=== PATIENT | male | born 1970 | race African-American/Black ===

== ENCOUNTER 2016-05-26 10:58 | Inpatient (IN) | payer OTHER ==
[2016-05-26 11:18] VITALS: BMI 24.1
--- NOTE | 2016-05-26 11:42 | HP ---
COWS - Scale Resting Pulse: 0= [place] 80 or Below Sweatin= Chills/Flushing Restless Observation: 1= Difficult to Sit Still Pupil Size: 0= Normal to Room Light Bone or Joint Aches: 2= Severe Diffuse Aches Runny Nose/ Eye Tearin= Runny Nose/Eyes GI Upset > 30mins: 3= Vomiting/Diarrhea Tremor Observation: 0= None Yawning Observation: 1= 1-2x During Session Anxiety or Irritability: 1=Feels Anxious/Irritable Goose Flesh Skin: 3=Piloerection COWS Score: 14 Admission ROS S - HPI Chief Complaint: "I need to detox from Heroin." Allergies/Adverse Reactions: Allergies Allergy/AdvReac Type Severity Reaction Status Date / Time Fish Containing Products Allergy Swelling Verified 05/26/16 11:10 No Known Drug Allergies Allergy Verified 05/26/16 11:10 History of Present Illness: Pt. is a 45 YO male here to detox from Heroin. Pt. has been here at [facility] for Detox before. Pt. also reports using Cocaine on a daily basis. Exam Limitations: No Limitations - Ebola screening Have you traveled outside of the country in the last 21 days: No (N) Have you had contact with anyone from an Ebola affected area: No Have you been sick,other than usual withdrawal symptoms: No Do you have a fever: No - Review of Systems Constitutional: Diaphoresis, Loss of Appetite, Malaise, Night Sweats, Changes in sleep, Unintentional Wgt. Loss (Lost approx. 25 lbs. over the last year.) EENT: reports: Blurred Vision, Recent change in vision (Increasing difficulty seeing things that are up close.), Nose Congestion, Other (Dentures - upper.) Respiratory: reports: No Symptoms reported Cardiac: reports: No Symptoms Reported GI: reports: Diarrhea, Nausea, Vomiting : reports: Other (Pt. has Sickle Cell Disease. Occasionally suffers from Priapsm (involuntary erection). NOT CURRENT.) Musculoskeletal: reports: Back Pain, Joint Pain, Muscle Pain, Joint Stiffness Integumentary: reports: Sweating Neuro: reports: No Symptoms reported Endocrine: reports: No Symptoms Reported Hematology: reports: Anemia, Other (Sickle Cell Disease.) Psychiatric: reports: Judgement Intact, Mood/Affect Appropiate, Orientated x3, Anxious, Depressed Other Systems: Reviewed and Negative Patient History - Patient Medical History Hx Anemia: Yes (History of Sickle Cell Disease.) Hx Asthma: No Hx Chronic Obstructive Pulmonary Disease (COPD): No Hx Cancer: No Hx Cardiac Disorders: No Hx Congestive Heart Failure: No Hx Hypertension: No Hx Hypercholesterolemia: No Hx Pacemaker: No HX Cerebrovascular Accident: No Hx Seizures: No Hx Dementia: No Hx Diabetes: No Hx Gastrointestinal Disorders: No Hx Liver Disease: No Hx Genitourinary Disorders: Yes (Occasional involuntary spontaneous erection. NOT CURRENTLY.) Hx Sexually Transmitted Disorders: No Hx Renal Disease (ESRD): No Hx Thyroid Disease: No Hx Human Immunodeficiency Virus (HIV): No (Last Tested: 12/2015: NEGATIVE.) Hx Hepatitis C: No (Last Tested: 12/2015: NEGATIVE.) Hx Depression: Yes (No previous treatment.) Hx Suicide Attempt: No (PATIENT DENIES CURRENT SI / HI.) Hx Bipolar Disorder: No Hx Schizophrenia: No - Patient Surgical History Past Surgical History: Yes Hx Neurologic Surgery: No Hx Cataract Extraction: No Hx Cardiac Surgery: No Hx Lung Surgery: No Hx Breast Surgery: No Hx Breast Biopsy: No Hx Abdominal Surgery: No Hx Appendectomy: No Hx Cholecystectomy: No Hx Genitourinary Surgery: No Hx Section: No Hx Orthopedic Surgery: Yes (LEFT ELBOW FRACTURE-HAD SCREWS PLACED AT AGE 15) Anesthesia Reaction: No - PPD History Previous Implant?: Yes Documented Results: Negative w/o proof Implanted On Prior [facility] Admission?: Yes Date: 03/16/15 Results: 0 MM PPD to be Administered?: Yes - Reproductive History Patient is a Female of Child Bearing Age (11 -55 yrs old): No (PATIENT IS MALE.) - Smoking Cessation Smoking history: Current every day smoker Have you smoked in the past 12 months: Yes Aproximately how many cigarettes per day: 20 Cigars Per Day: 0 Hx Chewing Tobacco Use: No Initiated information on smoking cessation: Yes 'Breaking Loose' booklet given: 05/26/16 (GIVEN ON UNIT.) - Substance & Tx. History Hx Alcohol Use: No Hx Substance Use: Yes Substance Use Type: Cocaine, Heroin Hx Substance Use Treatment: Yes (Previous Detox admission.) - Substances Abused Heroin Route: Injection Frequency: Daily Amount used: 10 BAGS Age of first use: 20 Date of Last Use: 05/25/16 Crack Route: Smoking Frequency: Daily Amount used: $100 Age of first use: 15 Date of Last Use: 05/25/16 Family Disease History - Family Disease History Family Disease History: Diabetes: Grandparent, [place]: Mother (.), Other: Father (HEROIN,ALCOHOL), Daughter (Sickle Cell Disease.) Admission Physical Exam [facility] - Vital Signs Vital Signs: Vital Signs - 24 hr 05/26/16 11:16 Temperature 95.5 F L Pulse Rate 71 Respiratory 18 Rate Blood Pressure 130/77 - Physical General Appearance: Yes: No Apparent Distress, Nourished, Appropriately Dressed , Irritable, Anxious HEENTM: Yes: Hearing grossly Normal, Normocephalic, Normal Voice, MAGY, Pharynx Normal Respiratory: Yes: Chest Non-Tender, Lungs Clear, No Respiratory Distress Neck: Yes: No masses,lesions,Nodules, Supple, Trachea in good position Breast: Yes: Breast Exam Deferred Cardiology: Yes: Regular Rhythm, Regular Rate, S1, S2 Abdominal: Yes: Normal Bowel Sounds, Non Tender, Flat, Soft Genitourinary: Yes: Within Normal Limits Back: Yes: Normal Inspection Musculoskeletal: Yes: full range of Motion, Gait Steady Extremities: Yes: Normal Inspection, Normal Range of Motion, Non-Tender, Other ( Track gould noted on Left and Right Cubital creases. Area of swelling noted on Right forearm.) Neurological: Yes: Fully Oriented, Alert, Normal Mood/Affect, Normal Response Integumentary: Yes: Normal Color, Warm, Other (Track gould noted on Left and Right Cubital creases. Area of swelling noted on right forearm.) Lymphatic: Yes: Within Normal Limits - Addiitonal Findings: Pt. declines both Nicotine Patch and Nicotine Gum for admission when offered. - Diagnostic (1) Cocaine dependence, uncomplicated Current Visit: Yes Status: Acute (2) Nicotine dependence Current Visit: Yes Status: Chronic Qualifiers: Nicotine product type: cigarettes Substance use status: uncomplicated Qualified Code(s): F17.210 - Nicotine dependence, cigarettes, uncomplicated (3) Opioid dependence with withdrawal Current Visit: Yes Status: Acute (4) Sickle cell disease Current Visit: Yes Status: Chronic Qualifiers: Sickle-cell associated disorders: without crisis Qualified Code(s): D57.1 - Sickle-cell disease without crisis (5) Cellulitis of right arm Current Visit: Yes Status: Acute Cleared for Admission [facility] - Detox or Rehab [facility] Level of Care: Medically Managed Detox Regimen/Protocol: Methadone [facility] Breath Alcohol Content Breath Alcohol Content: 0 Urine Drug Screen - Results Drug Screen Negative: No Urine Drug Screen Results: THC-Marijuana, JUANIS-Cocaine, OPI-Opiates
[2016-05-26] MEDS ORDERED: METHADONE HCL 10 MG TABLET (FOR DETOX USE ONLY) PO ONE ×2 (12:23→23:00)
[2016-05-26] MEDS ORDERED: IBUPROFEN 400 MG TABLET (FP) PO PRN (12:23)
[2016-05-26] MEDS ORDERED: LOPERAMIDE HCL 2 MG CAPSULE PO PRN (12:23)
[2016-05-26] MEDS ORDERED: P-EPHED 60MG/TRIPROLIDI 2.5MG TABLET PO PRN (12:23)
[2016-05-26] MEDS ORDERED: MAGNESIUM HYDROX 2400MG/30ML ORAL SUSPENSION 30 ML CUP PO PRN (12:23)
[2016-05-26] MEDS ORDERED: guaiFENesin/D-METHORPHAN HB 10 ML UNIT-DOSE CUPS PO PRN (12:23)
[2016-05-26] MEDS ORDERED: MAGNESIUM CITRATE 300 ML BOTTLE PO PRN (12:23)
[2016-05-26] MEDS ORDERED: MAG HYDROX/AL HYDROX/SIMETH 30 ML UNIT-DOSE CUP PO PRN (12:23)
[2016-05-26] MEDS ORDERED: diphenhydrAMINE HCL 50 MG CAPSULE PO PRN (12:23)
[2016-05-26] MEDS ORDERED: ACETAMINOPHEN 325 MG TABLET (FP) PO PRN (12:23)
[2016-05-26] MEDS ORDERED: hydrOXYzine PAMOATE 50 MG CAPSULE (FP) PO PRN (12:23)
[2016-05-26] MEDS ORDERED: MENTHOL/PHENOL 1 EACH UD MM PRN (12:23)
[2016-05-26] MEDS: diazePAM 5 MG TABLET PO PRN (12:45)
[2016-05-26] MEDS: CEPHALEXIN MONOHYDRATE 500 MG CAPSULE (UD) PO SCH ×2 (17:44→23:33)
[2016-05-26 18:52] LABS: URINE APPEARANCE CLEAR; URINE BILIRUBIN NEGATIVE (NEGATIVE); URINE COLOR LTYELLOW; URINE GLUCOSE (UA) NEGATIVE (NEGATIVE); URINE KETONE NEGATIVE (NEGATIVE); URINE LEUK ESTERASE NEGATIVE (NEGATIVE); URINE NITRITE NEGATIVE (NEGATIVE); URINE PROTEIN NEGATIVE (NEGATIVE); URINE UROBILINOGEN NEGATIVE E.U./dl (0.2-1.0)
[2016-05-26 18:57] LABS: URINE BLOOD 1+ (NEGATIVE)
[2016-05-26 19:01] LABS: URINE RBC <1 /hpf (0-3)
[2016-05-26] MEDS: THIAMINE HCL 100 MG TABLET (FP) PO SCH (22:34)
[2016-05-26] MEDS: BACITRACIN 30 GM TUBE TOPICAL OINTMENT TP SCH (22:34)
[2016-05-27] MEDS: CEPHALEXIN MONOHYDRATE 500 MG CAPSULE (UD) PO SCH ×3 (06:01→17:05)
[2016-05-27] MEDS ORDERED: PRENATAL VITAMINS W/ FOLIC ACID TABLET (FP) PO SCH (10:00)
[2016-05-27] MEDS ORDERED: METHADONE HCL 10 MG TABLET (FOR DETOX USE ONLY) PO ONE (10:00)
[2016-05-27 10:06] LABS: MCHC 33.4 g/dl (32.0-35.9); MEAN CELL VOLUME 83.7 fl (80-96); MEAN PLT VOLUME 7.3 fl (7.5-11.1); PLATELET COUNT 288 K/MM3 (134-434); RDW 13.3 % (11.9-15.9); WHITE BLOOD COUNT 5.2 K/mm3 (4.0-10.0)
[2016-05-27] MEDS: BACITRACIN 30 GM TUBE TOPICAL OINTMENT TP SCH ×2 (10:26→23:14)
[2016-05-27 10:33] LABS: ALBUMIN 3.7 g/dl (3.4-5.0); ALK PHOS 79 U/L (45-117); ANION GAP 8 (8-16); BILIRUBIN,TOTAL 0.4 mg/dL (0.2-1.0); CALCIUM 9.6 mg/dL (8.5-10.1); CO2 26 mmol/L (21-32); CREATININE 1.1 mg/dL (0.7-1.3); GLUCOSE,RANDOM 89 mg/dL (74-106); SGOT/AST 13 U/L (15-37); SGPT/ALT 21 U/L (12-78); TOT PROT 6.7 g/dl (6.4-8.2)
[2016-05-27] MEDS ORDERED: CYCLOBENZAPRINE HCL 10 MG TABLET (FP) PO PRN (10:58)
--- NOTE | 2016-05-27 11:03 | PN ---
BHS COWS - Scale Resting Pulse: 0= [place] 80 or Below Sweatin=Flushed/Facial Moisture Restless Observation: 1= Difficult to Sit Still Pupil Size: 0= Normal to Room Light Bone or Joint Aches: 2= Severe Diffuse Aches Runny Nose/ Eye Tearin= Runny Nose/Eyes GI Upset > 30mins: 1= Stomach Cramp Tremor Observation of Outstretched Hands: 2= Slight Tremor Visible Yawning Observation: 1= 1-2x During Session Anxiety or Irritability: 2=Irritable/Anxious Goose Flesh Skin: 0=Smooth Skin COWS Score: 13 BHS Progress Note (SOAP) Subjective: ANXIETY,TREMORS,SWEATING,INTERRUPTED SLEEP,RESTLESS Objective: 05/27/16 11:02 Vital Signs - 8 hr 05/27/16 05/27/16 05/27/16 03:19 06:17 10:15 Temperature 97.8 F 99.0 F Pulse Rate 56 L 71 Respiratory 18 18 18 Rate Blood Pressure 135/88 141/73 Laboratory Tests 05/26/16 05/27/16 05/27/16 17:45 06:30 06:30 WBC 5.2 D RBC 4.75 Hgb 13.3 Hct 39.8 MCV 83.7 MCHC 33.4 RDW 13.3 Plt Count 288 MPV 7.3 L Sodium 141 Potassium 4.3 D Chloride 107 Carbon Dioxide 26 Anion Gap 8 BUN 13 D Creatinine 1.1 Creat Clearance w eGFR > 60 Random Glucose 89 D Calcium 9.6 Total Bilirubin 0.4 AST 13 L ALT 21 Alkaline Phosphatase 79 Total Protein 6.7 Albumin 3.7 Urine Color Ltyellow Urine Appearance Clear Urine pH 5.0 Ur Specific [place] 1.014 Urine Protein Negative Urine Glucose (UA) Negative Urine Ketones Negative Urine Blood 1+ H Urine Nitrite Negative Urine Bilirubin Negative Urine Urobilinogen Negative Ur Leukocyte Esterase Negative Urine RBC <1 Urine WBC None Ur Epithelial Cells Rare LABS NOTED Assessment: 05/27/16 11:03 WITHDRAWAL SX. Plan: CONTINUE DETOX
[2016-05-27] MEDS: cloNIDine HCL 0.1 MG TABLET PO SCH ×2 (11:08→22:04)
--- NOTE | 2016-05-27 15:42 | CONSULT ---
[facility] Psychiatric Consult - Data Date of interview: 05/27/16 Admission source: [facility] Identifying data: Readmission to [facility] for this 45 y/o AA male seeking detox treatment on for heroin,cocaine and marijuana dependence.Patient is ,a father of three,domiciled,unemployed and supported on Welfare. Substance Abuse History: - Smoking Cessation. Smoking history: Current every day smoker. Have you smoked in the past 12 months: Yes. Aproximately how many cigarettes per day: 20. Cigars Per Day: 0. Hx Chewing Tobacco Use: No. Initiated information on smoking cessation: Yes. 'Breaking Loose' booklet given : 05/26/16 (GIVEN ON UNIT.). - Substance & Tx. History. Hx Alcohol Use: No. Hx Substance Use: Yes. Substance Use Type: Cocaine, Heroin. Hx Substance Use Treatment: Yes (Previous Detox admission.). - Substances Abused. Heroin. Route: Injection. Frequency: Daily. Amount used: 10 BAGS. Age of first use: 20. Date of Last Use: 05/25/16. Crack. Route: Smoking. Frequency: Daily. Amount used: $100. Age of first use: 15. Date of Last Use: 05/25/16. Confirmed by patient. Medical History: Patient endorses good general health. Psychiatric History: Patient denies. Physical/Sexual Abuse/Trauma History: No reported history of sexual abuse. Additional Comment: Urine Drug Screen Results: THC-Marijuana, JUANIS-Cocaine, OPI- Opiates.Noted. Mental Status Exam - Mental Status Exam Alert and Oriented to: Time, Place, Person Cognitive Function: Good Patient Appearance: Well Groomed Mood: Nervous, Withdrawn, Anxious Affect: Mood Congruent Patient Behavior: Sedated (mild sedation), Fatigued, Appropriate, Cooperative Speech Pattern: Clear, Appropriate Voice Loudness: Normal Thought Process: Goal Oriented Thought Disorder: Not Present Hallucinations: Denies Suicidal Ideation: Denies Homicidal Ideation: Denies Insight/Judgement: Poor Sleep: Fair Appetite: Good Muscle strength/Tone: Normal Gait/Station: Normal Psychiatric Findings - Problem List ([place] 1, 2,3) (1) Opioid dependence with withdrawal Current Visit: Yes Status: Acute (2) Cocaine dependence, uncomplicated Current Visit: Yes Status: Acute (3) Nicotine dependence Current Visit: Yes Status: Acute Qualifiers: Nicotine product type: cigarettes Substance use status: uncomplicated Qualified Code(s): F17.210 - Nicotine dependence, cigarettes, uncomplicated (4) Cannabis dependence Current Visit: Yes Status: Acute (5) Drug-induced mood disorder Current Visit: Yes Status: Suspected (6) Sickle cell disease Current Visit: Yes Status: Chronic Qualifiers: Sickle-cell associated disorders: without crisis Qualified Code(s): D57.1 - Sickle-cell disease without crisis (7) Arthritis Current Visit: No Status: Suspected Comment: RIGHT HIP X 1 YEAR - IBUPROFEN (8) Cellulitis of right arm Current Visit: Yes Status: Acute - Initial Treatment Plan Initial Treatment Plan: Psychoeducation.Detoxification.Observation.
[2016-05-27] MEDS: diazePAM 5 MG TABLET PO PRN ×2 (17:04→22:04)
[2016-05-27] MEDS: THIAMINE HCL 100 MG TABLET (FP) PO SCH (22:04)
[2016-05-28] MEDS: CEPHALEXIN MONOHYDRATE 500 MG CAPSULE (UD) PO SCH ×2 (05:54)
[2016-05-28 09:49] VITALS: BP 130/63; PULSE 63; TEMP 97.6
--- NOTE | 2016-05-28 09:58 | DS ---
[facility] Detox Discharge Summary Admission Date: 05/26/16 Discharge Date: 05/28/16 - History Present History: Cannabis Dependence, Cocaine Dependence, Opioid Dependence Additional Comments: PT DECLINED TO CONTINUE WITH DETOX STATING "20 MG METHADONE IS TOO SMALL FOR ME. GOING TO WHERE I CAN GET MORE. IT'S NOT WORKING FOR ME HERE". PT WAS SEEN AND SPOKEN TO BY THIS ERP ENGINEER AND THE COUNSELING CHURN OPERATOR AND ENCOURAGED HIM TO WAIT AND SEE HIS COUNSELOR BUT HE DECLINED ALL SUGGESTIONS. ALERT O X 3. NAD. PT SIGNED OUT AMA. Pertinent Past History: SICKLE CELL DISEASE CELLULITIS RIGHT ARM. - Physical Exam Results Vital Signs: Vital Signs Temperature 97.6 F 05/28/16 09:48 Pulse Rate 63 05/28/16 09:48 Respiratory Rate 18 05/28/16 09:48 Blood Pressure 130/63 05/28/16 09:48 O2 Sat by Pulse Oximetry (%) Pertinent Admission Physical Exam Findings: WITHDRAWAL SX - Treatment Hospital Course: Detox Protocol Followed, Detoxed Safely, Responded well, Discharged Condition Good - Medication Discharge Medications: Ambulatory Orders NK [No Known Home Medication] 01/03/16 - Diagnosis (1) Cocaine dependence, uncomplicated Current Visit: Yes Status: Acute (2) Nicotine dependence Current Visit: Yes Status: Chronic Qualifiers: Nicotine product type: cigarettes Substance use status: uncomplicated Qualified Code(s): F17.210 - Nicotine dependence, cigarettes, uncomplicated (3) Opioid dependence with withdrawal Current Visit: Yes Status: Acute (4) Sickle cell disease Current Visit: Yes Status: Chronic Qualifiers: Sickle-cell associated disorders: without crisis Qualified Code(s): D57.1 - Sickle-cell disease without crisis (5) Arthritis Current Visit: No Status: Suspected - AMA Did Patient Leave Against Medical Advice: Yes (AMA)
[2016-05-28] MEDS ORDERED: METHADONE HCL 5 MG TABLET (FOR DETOX USE ONLY) PO ONE (10:00)
--- NOTE | 2016-05-29 09:42 | EKG ---
Test Reason : Blood Pressure : / mmHG Vent. Rate : 067 BPM Atrial Rate : 067 BPM P-R Int : 202 ms QRS Dur : 092 ms QT Int : 426 ms P-R-T Axes : 015 039 032 degrees QTc Int : 450 ms NORMAL SINUS RHYTHM NORMAL ECG NO PREVIOUS ECGS AVAILABLE Confirmed by MALISSA MONTES, BETTIE ([id number]) on 05/29/2016 9:42:13 AM Referred By: Confirmed By:BETTIE LEONARDO MD
[2016-05-29] MEDS ORDERED: METHADONE HCL 5 MG TABLET (FOR DETOX USE ONLY) PO ONE (10:00)
[2016-05-30] MEDS ORDERED: METHADONE HCL 10 MG TABLET (FOR DETOX USE ONLY) PO ONE (10:00)
[2016-05-31] MEDS ORDERED: METHADONE HCL 5 MG TABLET (FOR DETOX USE ONLY) PO ONE (06:00)
== END 2016-05-28 09:43 | disposition left against medical advice (07) | DRG 770 ==
LOC: YASAS 10:58 → Y3N 11:45
PROVIDERS: ADMIT Internal Medicine; ATTEND Internal Medicine
PROC: HZ2ZZZZ Detoxification Services for Substance Abuse Treatment (ICD-10-PCS; principal; 2016-05-26)
DX: F11.23 Opioid dependence with withdrawal (principal); F14.20 Cocaine dependence, uncomplicated; F12.20 Cannabis dependence, uncomplicated; F17.210 Nicotine dependence, cigarettes, uncomplicated; F19.24 Other psychoactive substance dependence with psychoactive substance-induced mood disorder; D57.1 Sickle-cell disease without crisis; M12.9 Arthropathy, unspecified; L03.113 Cellulitis of right upper limb
CPT/HCPCS: 36415; 80053; 81003; 81015; 85027; 86593; 93005; 93010

== ENCOUNTER 2017-10-13 16:37 | Inpatient (IN) | payer OTHER ==
--- NOTE | 2017-10-13 19:48 | HP ---
COWS - Scale Resting Pulse: 0= [place] 80 or Below Sweatin=Flushed/Facial Moisture Restless Observation: 1= Difficult to Sit Still Pupil Size: 1= Pupils >than Normal Bone or Joint Aches: 1= Mild Discomfort Runny Nose/ Eye Tearin= Runny Nose/Eyes GI Upset > 30mins: 0= None Tremor Observation: 4= Gross Tremor/Twitching Yawning Observation: 0= None Anxiety or Irritability: 1=Feels Anxious/Irritable Goose Flesh Skin: 0=Smooth Skin COWS Score: 12 Admission ROS S - HPI Chief Complaint: Here for heroin detox. Having withdrawal symptoms. Allergies/Adverse Reactions: Allergies Allergy/AdvReac Type Severity Reaction Status Date / Time Fish Containing Products Allergy Swelling Verified 10/13/17 19:23 No Known Drug Allergies Allergy Verified 10/13/17 19:23 History of Present Illness: Here for heroin detox. Heroin use since age 16. Uses about 10 bags daily IV. Last used about 6 am today. Also uses cocaine, since age 16. Smoke cocaine daily. Marijuana daily. Hx. sickle cell disease. Takes folic acid, but not daily. Previous detox's @ [facility]. No hx of methadone or Suboxone maintenance therapy in past. Denies alcohol use. - Ebola screening Have you traveled outside of the country in the last 21 days: Yes Have you had contact with anyone from an Ebola affected area: No Have you been sick,other than usual withdrawal symptoms: No Do you have a fever: Yes - Review of Systems Constitutional: Chills, Changes in sleep (Difficulty falling and staying asleep. No medications.), Unintentional Wgt. Loss (About 50 lbs in past year.) EENT: reports: Blurred Vision (Needs glasses), Dental Problems (Has upper dentures and uses fixadent.) Respiratory: reports: No Symptoms reported Cardiac: reports: No Symptoms Reported GI: reports: No Symptoms Reported : reports: No Symptoms Reported Musculoskeletal: reports: Other (Aches and pains r/t sickle cell.) Integumentary: reports: No Symptoms Reported Neuro: reports: Headache (Occ but usually r/t hunger.) Endocrine: reports: No Symptoms Reported Psychiatric: reports: Orientated x3, Agitated, Anxious, Depressed (Hx. depression. Denies suicide or violent.), other (Occ sickle cell crisis causes severe joint pain. Improves w/ massage and pain medication.) Patient History - Patient Medical History Hx Anemia: Yes (History of Sickle Cell Disease.) Hx Asthma: No Hx Chronic Obstructive Pulmonary Disease (COPD): No Hx Cancer: No Hx Cardiac Disorders: No Hx Congestive Heart Failure: No Hx Hypertension: No Hx Hypercholesterolemia: No Hx Pacemaker: No HX Cerebrovascular Accident: No Hx Seizures: No Hx Dementia: No Hx Diabetes: No Hx Gastrointestinal Disorders: No Hx Liver Disease: No Hx Genitourinary Disorders: Yes (Occasional involuntary spontaneous erection. NOT CURRENTLY.) Hx Sexually Transmitted Disorders: No Hx Renal Disease (ESRD): No Hx Thyroid Disease: No Hx Human Immunodeficiency Virus (HIV): No (Last Tested: 12/2015: NEGATIVE.) Hx Hepatitis C: No (Last Tested: 12/2015: NEGATIVE.) Hx Depression: Yes (No previous treatment.) Hx Suicide Attempt: No (PATIENT DENIES CURRENT SI / HI.) Hx Bipolar Disorder: No Hx Schizophrenia: No - Patient Surgical History Past Surgical History: Yes Hx Neurologic Surgery: No Hx Cataract Extraction: No Hx Cardiac Surgery: No Hx Lung Surgery: No Hx Breast Surgery: No Hx Breast Biopsy: No Hx Abdominal Surgery: No Hx Appendectomy: No Hx Cholecystectomy: No Hx Genitourinary Surgery: No Hx Section: No Hx Orthopedic Surgery: Yes (LEFT ELBOW FRACTURE-HAD SCREWS PLACED AT AGE 15) Anesthesia Reaction: No - PPD History Previous Implant?: Yes Date: 05/28/16 Results: 0 MM PPD to be Administered?: Yes - Smoking Cessation Smoking history: Current every day smoker Have you smoked in the past 12 months: Yes Aproximately how many cigarettes per day: 20 Cigars Per Day: 0 Hx Chewing Tobacco Use: No Initiated information on smoking cessation: Yes 'Breaking Loose' booklet given: 10/13/17 - Substance & Tx. History Hx Alcohol Use: No Hx Substance Use: Yes Substance Use Type: Cocaine, Heroin, Marijuana Hx Substance Use Treatment: Yes (Detox at [facility] 2016) - Substances Abused Heroin Route: Injection Frequency: Daily Amount used: 10 BAGS Age of first use: 16 Date of Last Use: 10/13/17 (about 6 am) Crack Route: Smoking Frequency: Daily Amount used: 2 BAGS Age of first use: 16 Date of Last Use: 10/13/17 (about about 2 or 3 am) Marijuana/Hashish Route: Smoking Frequency: Daily Amount used: $20 WORTH Age of first use: 16 Date of Last Use: 10/13/17 (about 3 am) Family Disease History - Family Disease History Family Disease History: Diabetes: Grandparent, [place]: Mother (.), Other: Father (HEROIN,ALCOHOL), Daughter (Sickle Cell Disease.) Admission Physical Exam S - Vital Signs Vital Signs: Vital Signs - 24 hr 10/13/17 19:03 Temperature 98.7 F Pulse Rate 76 Respiratory 18 Rate Blood Pressure 135/85 - Physical General Appearance: Yes: Appropriately Dressed, Tremorous, Sweating, Anxious HEENTM: Yes: EOMI, Hearing grossly Normal, Normal Voice, MAGY (Pupils at 3 mm), Rhinorrhea (r/t withdrawal.) Respiratory: Yes: Chest Non-Tender, Lungs Clear, Normal Breath Sounds Neck: Yes: No masses,lesions,Nodules, Supple Breast: Yes: Breast Exam Deferred Cardiology: Yes: Regular Rhythm, Regular Rate, S1, S2 Abdominal: Yes: Normal Bowel Sounds, Non Tender, Flat, Soft Genitourinary: Yes: Within Normal Limits Back: Yes: Normal Inspection Musculoskeletal: Yes: full range of Motion, Gait Steady Extremities: Yes: Normal Capillary Refill, Normal Range of Motion, Non-Tender, Tremors (Hands and arms upon extension.) Neurological: Yes: public employment mediator II-XII NML intact, Fully Oriented, Alert, Motor Strength 5/5 Integumentary: Yes: Track Gould (Multiple old and new track gould.), Other ( Superficial abrasion/scratch (L) shoulder (r/t previous trauma). Skin intact w/ thin scab.) Lymphatic: Yes: Within Normal Limits - Diagnostic (1) Abrasion Current Visit: Yes Status: Acute (2) Cannabis dependence Current Visit: Yes Status: Chronic (3) Cocaine dependence, uncomplicated Current Visit: Yes Status: Chronic (4) Opioid dependence with withdrawal Current Visit: Yes Status: Acute (5) Nicotine dependence Current Visit: Yes Status: Acute Qualifiers: Nicotine product type: cigarettes Substance use status: uncomplicated Qualified Code(s): F17.210 - Nicotine dependence, cigarettes, uncomplicated (6) Sickle cell disease Current Visit: Yes Status: Chronic Qualifiers: Sickle-cell associated disorders: without crisis Qualified Code(s): D57.1 - Sickle-cell disease without crisis (7) Weight decrease Current Visit: Yes Status: Suspected Comment: ENSURE Cleared for Admission [facility] - Detox or Rehab [facility] Level of Care: Medically Managed Detox Regimen/Protocol: Methadone [facility] Breath Alcohol Content Breath Alcohol Content: 0 Urine Drug Screen - Results Drug Screen Negative: No Urine Drug Screen Results: THC-Marijuana, JUANIS-Cocaine, OPI-Opiates, MTD- Methadone
[2017-10-13] MEDS ORDERED: MAG HYDROX/AL HYDROX/SIMETH 30 ML UNIT-DOSE CUP PO PRN (20:12)
[2017-10-13] MEDS ORDERED: IBUPROFEN 400 MG TABLET (FP) PO PRN (20:12)
[2017-10-13] MEDS ORDERED: MAGNESIUM CITRATE 300 ML BOTTLE PO PRN (20:12)
[2017-10-13] MEDS ORDERED: LOPERAMIDE HCL 2 MG CAPSULE PO PRN (20:12)
[2017-10-13] MEDS ORDERED: MENTHOL/PHENOL 1 EACH UD MM PRN (20:12)
[2017-10-13] MEDS ORDERED: hydrOXYzine PAMOATE 50 MG CAPSULE (FP) PO PRN (20:12)
[2017-10-13] MEDS ORDERED: NICOTINE POLACRILEX 2 MG GUM BUC PRN (20:12)
[2017-10-13] MEDS ORDERED: MAGNESIUM HYDROX 2400MG/30ML ORAL SUSPENSION 30 ML CUP PO PRN (20:12)
[2017-10-13] MEDS ORDERED: guaiFENesin/D-METHORPHAN HB 10 ML UNIT-DOSE CUPS PO PRN (20:12)
[2017-10-13] MEDS ORDERED: P-EPHED 60MG/TRIPROLIDI 2.5MG TABLET PO PRN (20:12)
[2017-10-13] MEDS ORDERED: ACETAMINOPHEN 325 MG TABLET (FP) PO PRN (20:40)
[2017-10-13] MEDS ORDERED: METHADONE HCL 10 MG TABLET (FOR DETOX USE ONLY) PO ONE ×2 (20:45→23:00)
[2017-10-13 20:48] VITALS: BMI 22.3
[2017-10-13] MEDS ORDERED: MELATONIN 5 MG TABLETS PO PRN (22:00)
[2017-10-13 22:35] LABS: URINE APPEARANCE CLEAR; URINE BILIRUBIN NEGATIVE (<2.0 mg/dL); URINE COLOR YELLOW; URINE GLUCOSE (UA) NEGATIVE (NEGATIVE); URINE KETONE NEGATIVE (NEGATIVE)
[2017-10-13 22:36] LABS: URINE LEUK ESTERASE NEGATIVE (NEGATIVE); URINE NITRITE NEGATIVE (NEGATIVE); URINE PROTEIN NEGATIVE (NEGATIVE); URINE UROBILINOGEN NORMAL mg/dL (0.2-1.0)
[2017-10-13] MEDS: diazePAM 5 MG TABLET PO PRN (22:43)
[2017-10-13] MEDS: BACITRACIN 0.9 GM PACKET TP SCH (22:43)
[2017-10-13] MEDS: CYCLOBENZAPRINE HCL 5 MG TABLET PO SCH (22:43)
[2017-10-13] MEDS: THIAMINE HCL 100 MG TABLET (FP) PO SCH (22:53)
[2017-10-14] MEDS: CYCLOBENZAPRINE HCL 5 MG TABLET PO SCH ×3 (07:02→22:25)
[2017-10-14 09:48] LABS: HEMATOCRIT 38.8 % (35.4-49); HEMOGLOBIN 12.8 GM/dL (11.7-16.9); MCH 27.8 pg (25.7-33.7); MCHC 33.1 g/dl (32.0-35.9); MEAN CELL VOLUME 83.9 fl (80-96); MEAN PLT VOLUME 7.9 fl (7.5-11.1); PLATELET COUNT 236 K/MM3 (134-434); RBC 4.62 M/mm3 (4.00-5.60); RDW 13.8 % (11.9-15.9); WHITE BLOOD COUNT 5.3 K/mm3 (4.0-10.0)
[2017-10-14] MEDS ORDERED: METHADONE HCL 10 MG TABLET (FOR DETOX USE ONLY) PO ONE (10:00)
[2017-10-14 10:07] LABS: CHLORIDE 111 mmol/L (98-107); POTASSIUM 4.2 mmol/L (3.5-5.1); SODIUM 145 mmol/L (136-145)
[2017-10-14 10:29] LABS: ALBUMIN 3.4 g/dl (3.4-5.0); ALK PHOS 77 U/L (45-117); ANION GAP 7 (8-16); BILIRUBIN,TOTAL 0.4 mg/dL (0.2-1.0); BLOOD UREA NITROGEN 16 mg/dL (7-18); CALCIUM 8.7 mg/dL (8.5-10.1); CO2 27 mmol/L (21-32); GLUCOSE,RANDOM 91 mg/dL (74-106); SGOT/AST 16 U/L (15-37); SGPT/ALT 17 U/L (12-78); TOT PROT 6.3 g/dl (6.4-8.2)
[2017-10-14] MEDS: BACITRACIN 0.9 GM PACKET TP SCH ×2 (10:46→22:25)
[2017-10-14] MEDS: PRENATAL VITAMINS W/ FOLIC ACID TABLET (FP) PO SCH (10:46)
[2017-10-14] MEDS: FOLIC ACID 1 MG TABLET (FP) PO SCH (10:46)
[2017-10-14] MEDS: NICOTINE 21 MG/24 HOURS TOPICAL PATCH TD SCH (10:48)
--- NOTE | 2017-10-14 12:38 | PN ---
BHS COWS - Scale Resting Pulse: 0= [place] 80 or Below Sweatin= Chills/Flushing Restless Observation: 3= Extraneous Movement Pupil Size: 1= Pupils >than Normal Bone or Joint Aches: 2= Severe Diffuse Aches Runny Nose/ Eye Tearin= Runny Nose/Eyes GI Upset > 30mins: 2= Nausea/Diarrhea Tremor Observation of Outstretched Hands: 2= Slight Tremor Visible Yawning Observation: 1= 1-2x During Session Anxiety or Irritability: 2=Irritable/Anxious Goose Flesh Skin: 0=Smooth Skin COWS Score: 16 S Progress Note (SOAP) Subjective: ALERT,IRRITABLE,ANXIOUS,INTERRUPTED SLEEP,TREMOR,PAIN IN THE BODY AND BACK Objective: 10/14/17 12:36 Vital Signs Temperature 98.2 F 10/14/17 10:37 Pulse Rate 67 10/14/17 10:37 Respiratory Rate 18 10/14/17 10:37 Blood Pressure 139/95 10/14/17 10:37 O2 Sat by Pulse Oximetry (%) EKG NSR PROLONG QT 408/482 Laboratory Last Values WBC 5.3 K/mm3 (4.0-10.0) 10/14/17 07:00 RBC 4.62 M/mm3 (4.00-5.60) 10/14/17 07:00 Hgb 12.8 GM/dL (11.7-16.9) 10/14/17 07:00 Hct 38.8 % (35.4-49) 10/14/17 07:00 MCV 83.9 fl (80-96) 10/14/17 07:00 MCH 27.8 pg (25.7-33.7) 10/14/17 07:00 MCHC 33.1 g/dl (32.0-35.9) 10/14/17 07:00 RDW 13.8 % (11.9-15.9) 10/14/17 07:00 Plt Count 236 K/MM3 (134-434) 10/14/17 07:00 MPV 7.9 fl (7.5-11.1) 10/14/17 07:00 Sodium 145 mmol/L (136-145) 10/14/17 07:00 Potassium 4.2 mmol/L (3.5-5.1) 10/14/17 07:00 Chloride 111 mmol/L (98-107) H 10/14/17 07:00 Carbon Dioxide 27 mmol/L (21-32) 10/14/17 07:00 Anion Gap 7 (8-16) L 10/14/17 07:00 BUN 16 mg/dL (7-18) D 10/14/17 07:00 Creatinine 1.0 mg/dL (0.7-1.3) 10/14/17 07:00 Creat Clearance w eGFR > 60 (>60) 10/14/17 07:00 Random Glucose 91 mg/dL (74-106) 10/14/17 07:00 Calcium 8.7 mg/dL (8.5-10.1) 10/14/17 07:00 Total Bilirubin 0.4 mg/dL (0.2-1.0) 10/14/17 07:00 AST 16 U/L (15-37) D 10/14/17 07:00 ALT 17 U/L (12-78) 10/14/17 07:00 Alkaline Phosphatase 77 U/L (45-117) 10/14/17 07:00 Total Protein 6.3 g/dl (6.4-8.2) L 10/14/17 07:00 Albumin 3.4 g/dl (3.4-5.0) 10/14/17 07:00 Urine Color Yellow 10/13/17 22:20 Urine Appearance Clear 10/13/17 22:20 Urine pH 6.0 (5.0-8.0) 10/13/17 22:20 Ur Specific [place] 1.018 (1.001-1.035) 10/13/17 22:20 Urine Protein Negative (NEGATIVE) 10/13/17 22:20 Urine Glucose (UA) Negative (NEGATIVE) 10/13/17 22:20 Urine Ketones Negative (NEGATIVE) 10/13/17 22:20 Urine Blood Negative (NEGATIVE) 10/13/17 22:20 Urine Nitrite Negative (NEGATIVE) 10/13/17 22:20 Urine Bilirubin Negative (<2.0 mg/dL) 10/13/17 22:20 Urine Urobilinogen Normal mg/dL (0.2-1.0) 10/13/17 22:20 Ur Leukocyte Esterase Negative (NEGATIVE) 10/13/17 22:20 RPR Titer Nonreactive (NONREACTIVE) 10/14/17 07:00 Assessment: 10/14/17 12:38 WITHDRAWAL SYMPTOM Plan: CONTINUE DETOX
--- NOTE | 2017-10-14 13:25 | EKG ---
Test Reason : Blood Pressure : / mmHG Vent. Rate : 084 BPM Atrial Rate : 084 BPM P-R Int : 180 ms QRS Dur : 086 ms QT Int : 408 ms P-R-T Axes : 068 045 022 degrees QTc Int : 482 ms NORMAL SINUS RHYTHM PROLONGED QT ABNORMAL ECG WHEN COMPARED WITH ECG OF 26-MAY-2016 12:59, NO SIGNIFICANT CHANGE WAS FOUND Confirmed by MD Dorita, Bib ([id number]) on 10/14/2017 1:24:53 PM Referred By: Luciano Hernandez Confirmed By:Bib Kevin MD
--- NOTE | 2017-10-14 16:44 | CONSULT ---
[facility] Psychiatric Consult - Data Date of interview: 10/14/17 Identifying data: Patient approached by credit underwriter for psychiatric consultation. Pt. refused. Stated, " i dont' want to speak to you today". Nursing staff made aware.
[2017-10-14] MEDS: THIAMINE HCL 100 MG TABLET (FP) PO SCH (22:25)
[2017-10-14] MEDS: diazePAM 5 MG TABLET PO PRN (22:25)
[2017-10-15] MEDS: CYCLOBENZAPRINE HCL 5 MG TABLET PO SCH ×3 (06:05→22:11)
[2017-10-15] MEDS ORDERED: METHADONE HCL 5 MG TABLET (FOR DETOX USE ONLY) PO ONE (10:00)
[2017-10-15] MEDS: NICOTINE 21 MG/24 HOURS TOPICAL PATCH TD SCH (10:08)
[2017-10-15] MEDS: diazePAM 5 MG TABLET PO PRN ×3 (10:08→22:10)
[2017-10-15] MEDS: BACITRACIN 0.9 GM PACKET TP SCH ×2 (10:08→23:54)
[2017-10-15] MEDS: PRENATAL VITAMINS W/ FOLIC ACID TABLET (FP) PO SCH (10:08)
[2017-10-15] MEDS: FOLIC ACID 1 MG TABLET (FP) PO SCH (10:08)
--- NOTE | 2017-10-15 11:19 | PN ---
[facility] COWS - Scale Resting Pulse: 0= VT 80 or Below Sweatin= Chills/Flushing Restless Observation: 3= Extraneous Movement Pupil Size: 1= Pupils >than Normal Bone or Joint Aches: 2= Severe Diffuse Aches Runny Nose/ Eye Tearin= Runny Nose/Eyes GI Upset > 30mins: 2= Nausea/Diarrhea Tremor Observation of Outstretched Hands: 2= Slight Tremor Visible Yawning Observation: 1= 1-2x During Session Anxiety or Irritability: 2=Irritable/Anxious Goose Flesh Skin: 0=Smooth Skin COWS Score: 16 BHS Progress Note (SOAP) Subjective: ALERT,IRRITABLE,ANXIOUS,INTERRUPTED SLEEP,TREMOR,PAIN IN THE BODY Objective: 10/15/17 11:17 Vital Signs Temperature 98.1 F 10/15/17 09:56 Pulse Rate 67 10/15/17 09:56 Respiratory Rate 19 10/15/17 09:56 Blood Pressure 151/67 10/15/17 09:56 O2 Sat by Pulse Oximetry (%) Laboratory Last Values WBC 5.3 K/mm3 (4.0-10.0) 10/14/17 07:00 RBC 4.62 M/mm3 (4.00-5.60) 10/14/17 07:00 Hgb 12.8 GM/dL (11.7-16.9) 10/14/17 07:00 Hct 38.8 % (35.4-49) 10/14/17 07:00 MCV 83.9 fl (80-96) 10/14/17 07:00 MCH 27.8 pg (25.7-33.7) 10/14/17 07:00 MCHC 33.1 g/dl (32.0-35.9) 10/14/17 07:00 RDW 13.8 % (11.9-15.9) 10/14/17 07:00 Plt Count 236 K/MM3 (134-434) 10/14/17 07:00 MPV 7.9 fl (7.5-11.1) 10/14/17 07:00 Sodium 145 mmol/L (136-145) 10/14/17 07:00 Potassium 4.2 mmol/L (3.5-5.1) 10/14/17 07:00 Chloride 111 mmol/L (98-107) H 10/14/17 07:00 Carbon Dioxide 27 mmol/L (21-32) 10/14/17 07:00 Anion Gap 7 (8-16) L 10/14/17 07:00 BUN 16 mg/dL (7-18) D 10/14/17 07:00 Creatinine 1.0 mg/dL (0.7-1.3) 10/14/17 07:00 Creat Clearance w eGFR > 60 (>60) 10/14/17 07:00 Random Glucose 91 mg/dL (74-106) 10/14/17 07:00 Calcium 8.7 mg/dL (8.5-10.1) 10/14/17 07:00 Total Bilirubin 0.4 mg/dL (0.2-1.0) 10/14/17 07:00 AST 16 U/L (15-37) D 10/14/17 07:00 ALT 17 U/L (12-78) 10/14/17 07:00 Alkaline Phosphatase 77 U/L (45-117) 10/14/17 07:00 Total Protein 6.3 g/dl (6.4-8.2) L 10/14/17 07:00 Albumin 3.4 g/dl (3.4-5.0) 10/14/17 07:00 Urine Color Yellow 10/13/17 22:20 Urine Appearance Clear 10/13/17 22:20 Urine pH 6.0 (5.0-8.0) 10/13/17 22:20 Ur Specific [place] 1.018 (1.001-1.035) 10/13/17 22:20 Urine Protein Negative (NEGATIVE) 10/13/17 22:20 Urine Glucose (UA) Negative (NEGATIVE) 10/13/17 22:20 Urine Ketones Negative (NEGATIVE) 10/13/17 22:20 Urine Blood Negative (NEGATIVE) 10/13/17 22:20 Urine Nitrite Negative (NEGATIVE) 10/13/17 22:20 Urine Bilirubin Negative (<2.0 mg/dL) 10/13/17 22:20 Urine Urobilinogen Normal mg/dL (0.2-1.0) 10/13/17 22:20 Ur Leukocyte Esterase Negative (NEGATIVE) 10/13/17 22:20 RPR Titer Nonreactive (NONREACTIVE) 10/14/17 07:00 Assessment: 10/15/17 11:18 WITHDRAWAL SYMPTOM Plan: CONTINUE DETOX
[2017-10-15] MEDS: THIAMINE HCL 100 MG TABLET (FP) PO SCH (22:10)
[2017-10-15 22:21] VITALS: PULSE 78
[2017-10-16] MEDS: CYCLOBENZAPRINE HCL 5 MG TABLET PO SCH ×2 (06:34→14:52)
[2017-10-16] MEDS: PRENATAL VITAMINS W/ FOLIC ACID TABLET (FP) PO SCH (09:46)
[2017-10-16] MEDS: FOLIC ACID 1 MG TABLET (FP) PO SCH (09:46)
[2017-10-16] MEDS: NICOTINE 21 MG/24 HOURS TOPICAL PATCH TD SCH (09:46)
[2017-10-16] MEDS: BACITRACIN 0.9 GM PACKET TP SCH (09:46)
[2017-10-16] MEDS: diazePAM 5 MG TABLET PO PRN (09:46)
[2017-10-16 09:58] VITALS: BP 151/72; TEMP 98
[2017-10-16] MEDS ORDERED: METHADONE HCL 5 MG TABLET (FOR DETOX USE ONLY) PO ONE (10:00)
--- NOTE | 2017-10-16 11:47 | PN ---
B[facility] Progress Note (SOAP) Subjective: alert,irritable,interrupted sleep,pain in the body Objective: 10/16/17 11:46 Vital Signs Temperature 98.0 F 10/16/17 09:57 Pulse Rate 78 10/16/17 09:57 Respiratory Rate 18 10/16/17 09:57 Blood Pressure 151/72 10/16/17 09:57 O2 Sat by Pulse Oximetry (%) Assessment: 10/16/17 11:47 withdrawal symptom Plan: continue detox
--- NOTE | 2017-10-16 15:21 | PN ---
S Progress Note Note: called by nurse,patient did not want to complete treatment due to family emergency,seen by counselor,did not want to wait
--- NOTE | 2017-10-16 15:28 | DS ---
[facility] Detox Discharge Summary Admission Date: 10/13/17 Discharge Date: 10/16/17 - History Present History: Cannabis Dependence, Opioid Dependence Additional Comments: follow up with after care program as arrangement,seen by counselor,could not complete treatment due to family emergency,signed release ama,did not want to wait Pertinent Past History: nicotine dependence Vital Signs Temperature 98.0 F 10/16/17 15:18 Pulse Rate 78 10/16/17 15:18 Respiratory Rate 18 10/16/17 15:18 Blood Pressure 151/72 10/16/17 15:18 O2 Sat by Pulse Oximetry (%) Laboratory Last Values WBC 5.3 K/mm3 (4.0-10.0) 10/14/17 07:00 RBC 4.62 M/mm3 (4.00-5.60) 10/14/17 07:00 Hgb 12.8 GM/dL (11.7-16.9) 10/14/17 07:00 Hct 38.8 % (35.4-49) 10/14/17 07:00 MCV 83.9 fl (80-96) 10/14/17 07:00 MCH 27.8 pg (25.7-33.7) 10/14/17 07:00 MCHC 33.1 g/dl (32.0-35.9) 10/14/17 07:00 RDW 13.8 % (11.9-15.9) 10/14/17 07:00 Plt Count 236 K/MM3 (134-434) 10/14/17 07:00 MPV 7.9 fl (7.5-11.1) 10/14/17 07:00 Sodium 145 mmol/L (136-145) 10/14/17 07:00 Potassium 4.2 mmol/L (3.5-5.1) 10/14/17 07:00 Chloride 111 mmol/L (98-107) H 10/14/17 07:00 Carbon Dioxide 27 mmol/L (21-32) 10/14/17 07:00 Anion Gap 7 (8-16) L 10/14/17 07:00 BUN 16 mg/dL (7-18) D 10/14/17 07:00 Creatinine 1.0 mg/dL (0.7-1.3) 10/14/17 07:00 Creat Clearance w eGFR > 60 (>60) 10/14/17 07:00 Random Glucose 91 mg/dL (74-106) 10/14/17 07:00 Calcium 8.7 mg/dL (8.5-10.1) 10/14/17 07:00 Total Bilirubin 0.4 mg/dL (0.2-1.0) 10/14/17 07:00 AST 16 U/L (15-37) D 10/14/17 07:00 ALT 17 U/L (12-78) 10/14/17 07:00 Alkaline Phosphatase 77 U/L (45-117) 10/14/17 07:00 Total Protein 6.3 g/dl (6.4-8.2) L 10/14/17 07:00 Albumin 3.4 g/dl (3.4-5.0) 10/14/17 07:00 Urine Color Yellow 10/13/17 22:20 Urine Appearance Clear 10/13/17 22:20 Urine pH 6.0 (5.0-8.0) 10/13/17 22:20 Ur Specific [place] 1.018 (1.001-1.035) 10/13/17 22:20 Urine Protein Negative (NEGATIVE) 10/13/17 22:20 Urine Glucose (UA) Negative (NEGATIVE) 10/13/17 22:20 Urine Ketones Negative (NEGATIVE) 10/13/17 22:20 Urine Blood Negative (NEGATIVE) 10/13/17 22:20 Urine Nitrite Negative (NEGATIVE) 10/13/17 22:20 Urine Bilirubin Negative (<2.0 mg/dL) 10/13/17 22:20 Urine Urobilinogen Normal mg/dL (0.2-1.0) 10/13/17 22:20 Ur Leukocyte Esterase Negative (NEGATIVE) 10/13/17 22:20 RPR Titer Nonreactive (NONREACTIVE) 10/14/17 07:00 - Physical Exam Results Vital Signs: Vital Signs Temperature 98.0 F 10/16/17 15:18 Pulse Rate 78 10/16/17 15:18 Respiratory Rate 18 10/16/17 15:18 Blood Pressure 151/72 10/16/17 15:18 O2 Sat by Pulse Oximetry (%) Pertinent Admission Physical Exam Findings: withdrawal signs and symptom - Medication Discharge Medications: Ambulatory Orders NK [No Known Home Medication] 01/03/16 - Diagnosis (1) Opioid dependence with withdrawal Current Visit: Yes Status: Acute (2) Nicotine dependence Current Visit: Yes Status: Acute Qualifiers: Nicotine product type: cigarettes Substance use status: uncomplicated Qualified Code(s): F17.210 - Nicotine dependence, cigarettes, uncomplicated (3) Cannabis dependence Current Visit: Yes Status: Chronic (4) Cocaine dependence, uncomplicated Current Visit: Yes Status: Chronic (5) Weight decrease Current Visit: Yes Status: Suspected - AMA Did Patient Leave Against Medical Advice: Yes
[2017-10-17] MEDS ORDERED: METHADONE HCL 10 MG TABLET (FOR DETOX USE ONLY) PO ONE (10:00)
[2017-10-18] MEDS ORDERED: METHADONE HCL 5 MG TABLET (FOR DETOX USE ONLY) PO ONE (06:00)
== END 2017-10-16 16:05 | disposition left against medical advice (07) | DRG 770 ==
LOC: YASAS 16:37 → Y6N 19:21
PROVIDERS: ADMIT Surgery; ATTEND Surgery
PROC: HZ2ZZZZ Detoxification Services for Substance Abuse Treatment (ICD-10-PCS; principal; 2017-10-13)
DX: F11.23 Opioid dependence with withdrawal (principal); F14.20 Cocaine dependence, uncomplicated; F12.20 Cannabis dependence, uncomplicated; F17.210 Nicotine dependence, cigarettes, uncomplicated; I45.81 Long QT syndrome; D57.1 Sickle-cell disease without crisis; Z91.013 Allergy to seafood; Z87.898 Personal history of other specified conditions
CPT/HCPCS: 36415; 80053; 81003; 85027; 86593; 93005; 93010